=== PATIENT | female | born 1990 | race Caucasian/White ===

== ENCOUNTER 2023-11-29 07:45 | Outpatient (CLI) | payer OTHER ==
--- NOTE | 2023-11-29 12:21 | XRAY Report ---
PROCEDURE: Wrist 3+V RT INDICATIONS: CONTUSION OF RIGHT WRIST TECHNIQUE: 3 views of the wrist were acquired. COMPARISON: None. FINDINGS: Bones: No fractures or dislocations. No suspicious bony lesions. Soft tissues: No suspicious soft tissue calcifications or masses. IMPRESSION: No acute bony abnormality. Reviewed by: Anju Davenport MD on 11/29/2023 12:20 PM PDT Approved by: Anju Davenport MD on 11/29/2023 12:20 PM PDT Station ID: [id number]
== END 2023-11-29 08:00 | disposition home or self-care (01) ==
LOC: DI.N 07:45
PROVIDERS: ATTEND Physician Assistant Medical
DX: S60.211A Contusion of right wrist, initial encounter (principal)